=== PATIENT | male | born 2005 | race Caucasian/White ===

== ENCOUNTER 2023-01-04 20:26 | Emergency (ER) | payer BC, SELFPAY ==
[2023-01-04 20:32] VITALS: BP 119/64; PULSE 154; RESP 24; TEMP 36.5; O2SAT 99
--- NOTE | 2023-01-04 20:42 | CRLHL7_ITS ---
For Patients: As a result of the 21st Century Cures Act, medical imaging exams and procedure reports are released immediately into your electronic medical record. You may view this report before your referring provider. If you have questions, please contact your health care provider. INDICATION: Right lower quadrant pain, nausea. TECHNIQUE: CT of the abdomen and pelvis with 88 cc Isovue 370 IV contrast. Coronal and sagittal reconstructions. COMPARISON: None. FINDINGS: Mild diffuse hepatic steatosis. The gallbladder, spleen, pancreas, and adrenal glands are negative. No biliary dilation. Hepatic and portal veins are patent. Symmetric enhancement of the kidneys. No hydronephrosis or ureteral dilation. No obstructing urinary calculi identified. Mild circumferential bladder wall thickening. Nonenlarged prostate gland. There is wall thickening of proximal small bowel loops. Fluid-filled mid to distal small bowel loops without evidence of obstruction. Short-segment enteroenteric intussusception in the right lower quadrant without obvious lead point mass (series 4 images [id number]). Large amount of formed stool in the rectosigmoid colon. The remainder of the colon is fluid-filled. Overall findings are most suggestive of a nonspecific enteritis/diarrheal illness. There is a tiny appendicolith in the appendix which is otherwise negative. No intraperitoneal free air or fluid. No lymphadenopathy. Tiny calcified granulomas in the right middle lobe and right lower lobe. The lung bases are otherwise clear. The bones are unremarkable. IMPRESSION: 1. Fluid-filled small bowel and colon suggesting a nonspecific enteritis/diarrheal illness. The appendix is negative. 2. Short-segment enteroenteric intussusception in the right lower quadrant which is likely transient. 3. Mild bladder wall thickening. Correlate with urinalysis. Please note that all CT scans at this facility use dose modulation, iterative reconstruction, and/or weight-based dosing when appropriate to reduce radiation dose to as low as reasonably achievable. Dictated by Rachna Edge MD @ 01/04/2023 9:39:45 PM (Electronically Signed)
--- NOTE | 2023-01-04 20:45 | ED.ABDPAIN ---
HPI - Abdominal Pain General Chief Complaint: Flank Pain Stated Complaint: side pain, vomiting Time Seen by Provider: 01/04/23 20:35 History of Present Illness HPI narrative: Patient is a 17-year-old young man who comes in today with 3 hours of right lower quadrant pain refractory nausea and vomiting. He is otherwise healthy takes no chronic medications. 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 He has had no recent travel no sick contacts no fevers no chills no night sweats. He has had no previous change in his stools but has not had any diarrhea. His pain is 10/10 and localized to the right lower quadrant. It is sharp. Related Data Home Medications Medication Instructions Recorded Confirmed No Known Home Medications 01/04/23 01/04/23 Allergies Allergy/AdvReac Type Severity Reaction Status Date / Time No Known Drug Allergies Allergy Verified 01/04/23 20:32 Review of Systems Status of ROS Reports: 10 or more systems reviewed and unremarkable except as noted in History and below PFSH PFS Social History service: No Exam Narrative: Exam Narrative: EXAM GENERAL: Patient appears uncomfortable and ill. THYROID: no thyroid nodules or thyromegaly. LYMPH: No supraclavicular or cervical lymphadenopathy. SKIN: Visible skin seen during exam normal or with benign process only. EXT: No dependent lower extremity pedal edema. HEART: Regular rate and rhythm with no murmurs, rubs, or gallops. LUNGS: Clear to auscultation bilaterally with no crackles or wheezes. ABD: Mildly distended with tenderness localized to the right lower quadrant. Mild rebound. Hypoactive bowel sounds. PSYCH: Good eye contact, speech is not pressured. Const: Vital Signs, click to edit/add: Vital Signs - 24 hr 01/04/23 20:32 01/04/23 22:37 Temperature 97.7 F Pulse Rate [Pulse Oximeter] 154 H 69 Respiratory Rate 24 18 Blood Pressure [Ri ght Upper Arm] 119/64 133/70 Pulse Oximetry 99 96 Oxygen Delivery Me thod Room Air Room Air Course Course ED Course: I am very suspicious today is acute appendicitis. CT of the abdomen pelvis CBC amylase lactate basic metabolic panel UA ordered. Normal saline started as well as Zofran and Toradol. Vital Signs Vital signs: Initial Vital Signs Temperature 97.7 F 01/04/23 20:32 Temperature Source Temporal Artery Scan 01/04/23 20:32 Pulse Rate 154 H 01/04/23 20:32 Respiratory Rate 24 01/04/23 20:32 Blood Pressure 119/64 01/04/23 20:32 Blood Pressure Mean 82 01/04/23 20:32 Blood Pressure Position Sitting 01/04/23 20:32 Pulse Oximetry 99 01/04/23 20:32 Oxygen Delivery Method Room Air 01/04/23 20:32 Vital Signs Temperature 97.7 F 01/04/23 20:32 Pulse Rate 154 H 01/04/23 20:32 Respiratory Rate 24 01/04/23 20:32 Blood Pressure 119/64 01/04/23 20:32 Pulse Oximetry 99 01/04/23 20:32 Oxygen Delivery Method Room Air 01/04/23 20:32 Temperature 97.7 F 01/04/23 20:32 Pulse Rate 69 01/04/23 22:37 Respiratory Rate 18 01/04/23 22:37 Blood Pressure 133/70 01/04/23 22:37 Pulse Oximetry 96 01/04/23 22:37 Oxygen Delivery Method Room Air 01/04/23 22:37 Medications Administered Medications: Generic Name Dose Route Start Last Admin Trade Name Freq PRN Reason Stop Dose Admin Sodium Chloride 1,000 mls @ 1,000 mls/hr 01/04/23 22:28 01/04/23 22:35 0.9 % Sodium Chloride 1000 Ml IV 01/04/23 23:27 1,000 mls/hr .Q1H KATHERINE Administration Discontinued Medications Generic Name Dose Route Start Last Admin Trade Name Freq PRN Reason Stop Dose Admin Sodium Chloride 1,000 mls @ 1,000 mls/hr 01/04/23 20:43 01/04/23 21:46 0.9 % Sodium Chloride 1000 Ml IV 01/04/23 21:42 Infused .Q1H KATHERINE Infusion Ketorolac Tromethamine 30 mg 01/04/23 20:42 01/04/23 21:04 Ketorolac 30 Mg/Ml Inj IVP 01/04/23 20:43 30 mg ONCE ONE Administration Ondansetron HCl 4 mg 01/04/23 20:42 01/04/23 21:04 Ondansetron 2 Mg/Ml Inj IVP 01/04/23 20:43 4 mg ONCE ONE Administration MDM - Abdominal Pain MDM Narrative Medical decision making narrative: Patient is a imaging does not show appendicitis is shows regional enteritis and intrususception. Patient was given aggressive hydration Zofran and Toradol. He is now asymptomatic and feeling well with given additional L of normal saline. I did review his CT scan with General surgery the patient will be allowed to go home advance his diet activity as tolerated with close outpatient follow-up. Zofran 0 DT was prescribed. Differential Diagnosis Differential diagnosis: Likely abdominal pain, acute appendicitis, calculus of kidney, constipation, diverticulitis, gastroenteritis, pancreatitis and small bowel obstruction Lab Data Labs: Lab Results 01/04/23 01/04/23 Range/Units 20:51 21:33 WBC 14.44 H (4.50-11.00) K/uL RBC 5.91 H (4.30-5.90) m/uL Hgb 17.3 (13.5-17.5) gm/dL Hct 49.7 (37.0-53.0) % MCV 84 (80-100) fL MCH 29 (26-34) pg MCHC 35 (32-36) gm/dL RDW Coeff of Juanis 12.2 (11.5-15.5) % Plt Count 269 (140-440) K/uL Neut % (Auto) 87.6 H (42.0-72.0) % Lymph % (Auto) 5.2 L (20-44) % Harvey % (Auto) 6.1 (0.0-11.0) % Eos % (Auto) 0.8 (0.0-7.0) % Baso % (Auto) 0.2 (0.0-3.0) % Neut # (Auto) 12.60 H (1.7-7.0) K/uL Lymph # (Auto) 0.80 L (0.90-2.90) K/uL Harvey # (Auto) 0.90 (0.00-0.90) K/UL Eos # (Auto) 0.10 (0.00-0.50) K/uL Baso # (Auto) 0.00 (0.00-0.30) K/uL Abs Immat Gran (auto) 0.00 (0.00-0.30) K/uL Imm/Tot Granulo (auto) 0.1 % Sodium 139 (135-149) mmol/L Potassium 4.0 (3.6-5.1) mmol/L Chloride 102 (96-114) mmol/L Carbon Dioxide 22 (20-32) mmol/L Anion Gap 15 (7-15) mEq/L BUN 24 (5-24) mg/dL Creatinine 1.0 (0.6-1.2) mg/dL Estimated GFR 111 ml/min Glucose 125 H (60-115) mg/dL Calcium 10.3 (8.7-10.8) mg/dL Total Bilirubin 1.2 (0.1-1.5) mg/dL AST 31 (12-35) U/L ALT 42 (4-50) U/L Alkaline Phosphatase 88 (65-260) U/L Total Protein 8.4 H (6.0-8.3) g/dL Albumin 5.4 H (3.3-5.0) g/dL Amylase 91 H (18-89) U/L Urine Color Yellow (Yellow) Urine Appearance Clear (Clear) Urine pH 7.5 (5.0-8.5) Ur Specific [place] 1.015 (1.000-1.030) Urine Protein Negative (Negative) Urine Glucose (UA) Negative (Negative) Urine Ketones Trace A (Negative) Urine Blood Negative (Negative) Urine Nitrite Negative (Negative) Urine Bilirubin Negative (Negative) Urine Urobilinogen 0.2 (0.2-1.0) Ur Leukocyte Esterase Negative (Negative) Discharge Plan Discharge Clinical Impression: Enteric intussusception Patient Disposition: Home, Self-Care Condition: Stable Instructions: Gastroenteritis (ED) Additional Instructions: Advance diet as tolerated Tylenol Motrin Rest Zofran as needed for nausea and vomiting. Activity Level: No Restrictions Discharge Diet: Regular Prescriptions: No Action No Known Home Medications Follow Up/Referrals: Provider,Not a Local [Primary Care Provider] - Stand Alone Forms: [employer] Info Instructions
[2023-01-04] MEDS: ONDANSETRON 2 MG/ML inj 4 MG IVP (21:04)
[2023-01-04] MEDS: KETOROLAC 30 MG/ML inj IVP (21:04)
[2023-01-04] MEDS: 0.9 % SODIUM CHLORIDE 1000 ml 1,000 ML IV ×2 (21:04→22:35)
[2023-01-04 21:39] LABS: Appearance Urine Clear (Clear); Bilirubin Urine Negative (Negative); Blood Urine Negative (Negative); Color Urine Yellow (Yellow); Glucose Urine Negative (Negative); Ketones Urine Trace (Negative); Leukocyte Esterase Urine Negative (Negative); Nitrite Urine Negative (Negative); Protein Urine Negative (Negative); Specific Gravity Urine 1.015 (1.000-1.030); Urobilinogen Urine 0.2 (0.2-1.0); pH Urine 7.5 (5.0-8.5)
[2023-01-04 21:49] LABS: Hematocrit 49.7 % (37.0-53.0); Hemoglobin* 17.3 gm/dL (13.5-17.5); Mean Corpuscular HGB Conc 35 gm/dL (32-36); Mean Corpuscular Hemoglobin 29 pg (26-34); Mean Corpuscular Volume 84 fL (80-100); Neutrophils Percent Auto 87.6 % (42.0-72.0); Platelet Count* 269 K/uL (140-440); RDW Coefficient of Variation % 12.2 % (11.5-15.5); Red Blood Count 5.91 m/uL (4.30-5.90); White Blood Count* 14.44 K/uL (4.50-11.00)
[2023-01-04 21:50] LABS: Basophils Percent Auto 0.2 % (0.0-3.0); Eosinophils Percent Auto 0.8 % (0.0-7.0); Immature Granulocytes Pct Auto 0.1 %; Lymphocytes Percent Auto 5.2 % (20-44); Monocytes Percent Auto 6.1 % (0.0-11.0)
[2023-01-04 21:58] LABS: Slide Review Reflex No
[2023-01-04 22:04] LABS: Albumin* 5.4 g/dL (3.3-5.0)
[2023-01-04 22:05] LABS: Chloride* 102 mmol/L (96-114); Sodium* 139 mmol/L (135-149)
[2023-01-04 22:07] LABS: Amylase* 91 U/L (18-89); Anion Gap 15 mEq/L (7-15); Bilirubin Total* 1.2 mg/dL (0.1-1.5); Carbon Dioxide* 22 mmol/L (20-32); Estimated Glomerular Filt Rate 111 ml/min
[2023-01-04 22:08] LABS: Alanine Aminotransferase* 42 U/L (4-50); Alkaline Phosphatase* 88 U/L (65-260); Aspartate Amino Transferase* 31 U/L (12-35); Blood Urea Nitrogen* 24 mg/dL (5-24); Calcium* 10.3 mg/dL (8.7-10.8); Glucose* 125 mg/dL (60-115); Total Protein* 8.4 g/dL (6.0-8.3)
[2023-01-04 22:37] VITALS: BP 133/70; PULSE 69; RESP 18; O2SAT 96
--- NOTE | 2023-01-05 00:15 | PM.EN ---
Chart Event Note Chart Event Note: I was called by Dr. Daily about the patient's CT finding of transient intussusception. I did review the CT and discuss the case with the radiologist. It did appear to be a transient intussusception. The bowel was not thickened, there was no proximal obstruction and the was no surrounding edema. The patient did have proximal bowel thickening consistent with enteritis but this was not the area of the intussusception. Discussed with Dr. Daily who stated that the patient's symptoms had improved and he was discharging home. I did not examine the patient on this date
== END 2023-01-04 23:35 | disposition home or self-care (01) ==
PROVIDERS: Emergency Provider Internal Medicine
DX: K56.1 Intussusception (principal)
CPT/HCPCS: 36415; 74177; 80053; 81003; 82150; 83605; 85025; 96374; 96375; 99283; 99284; J1885; J2405; J7030; Q9967